=== PATIENT | male | born 1940 | race Caucasian/White ===

== ENCOUNTER 2017-03-24 10:11 | Observation (INO) | payer MEDICARE, MEDICAID ==
[~2017-03-24] VITALS: Ht 182.9 cm; Wt 121.7 kg
[~2017-03-24 10:11] MED LIST: ADVAIR 250/5028 PUFF IN; ASPIRIN 81MG TA81 MG PO; BACTROBAN2% TP; BUSPAR 10MG TAB10 MG PO; DOXAZOSIN2 MG PO; GABAPENTIN100 M1 PO; KEFLEX500 M1 PO; LASIX40 MG PO; LISINOPRIL40 MG PO; LOPRESSOR 25MG.25 MG PO; LORTAB 7.5/3251 TAB PO; LOVASTATIN40 MG PO; METFORMIN1000 MG PO; METOPROLOL25 MG PO; MIRALAX17 GM/PACK PO; OMNICEF 300 MG300 MG PO; PREDNISONE 20MG20 MG PO; PRILOSEC OTC20 MG PO; VERAPAMIL SR 2240 MG PO; XARELTO20 MG PO; ZITHROMAX Z-PA250 M2 PO
[2017-03-24 10:17] VITALS: BP 141/62
--- NOTE | 2017-03-24 11:27 | Emergency Room Report ---
History of Present Illness Time Seen by 1024 Presenting Problem in Triage Pt arrived:Wheelchair Presenting Problem:BLISTERS TO HANDS, FEET BEGAN FRIDAY, SEEN HERE FRIDAY GIVEN KEFLEX AND BACTRIM Onset of symptoms date/time:/ or onset unknown for:MEDICAL HX UNKNOWN Treatment Prior to Arrival: PROCESS INSPECTOR Provided by: Sepsis Risk Assessment: Temp: 97.4 B/P: 134/70 MAP: 88 Pulse: 55 Resp: 20 Recent fever? N Clinical Suspician of Infection? N Mental Status: 1 - Regular (Normal Baseline) Sepsis Risk:Low Sepsis Risk Have you (or family members/close friends) recently traveled outside the [place]? N If Yes, where/when: Have you had exposure to infectious disease within the past month? N TB? Other? Specify: 76 years old white male with diabetes and history of DVT, and currently on xalerto. He developed a large blisters on the face dorsum of the hands and the base of the feet. He has no general symptoms. He was seen in emergency room underwent normal labs was given antibiotics and discharged with follow-up with a primary care physician. The reports that the blisters are now oozing clear yellow serous fluid but he is unable to walk on his feet. Source patient, RN notes reviewed, family, old records Exam Limitations no limitations ALLERGIES Coded Allergies: Penicillins (Mild, 03/22/17) Home Medications Active Scripts Cephalexin (Keflex 500MG) 500 MG PO QID #40 CAP Prov: 03/22/17 MUPIROCIN 2% (Bactroban Oint) 1 GM TP BID #1 TUBE Prov: 03/22/17 Reported Medications HYDROCODONE/ACETAMINOPHEN (Lortab 7.5-325 MG Tablet) 1 TAB PO Q6 PRN Metformin HCl (Metformin) 500 MG PO BID OMEPRAZOLE MAGNESIUM (Prilosec OTC) 20 MG PO DAILY VERAPAMIL HCL (Verapamil ER) 240 MG PO DAILY Furosemide (Lasix) 40 MG PO DAILY Doxazosin Mesylate 2 MG PO DAILY Lisinopril (Lisinopril 40MG) 40 MG PO DAILY Buspirone Hcl (Buspar 10MG) 15 MG PO DAILY Rivaroxaban (Xarelto) 20 MG PO DAILY Lovastatin 40 MG PO DAILY FLUTICASONE/SALMETEROL (Advair 250-50 Diskus) 1 PUFF IN BID ASPIRIN (Aspirin) 81 MG PO DAILY Gabapentin (Gabapentin 100MG) 100 MG PO BID Metoprolol Tartrate (Lopressor) 25 MG FT BID Metoprolol Tartrate (Metoprolol) 12.5 MG PO DAILY Polyethylene Glycol 3350 (Miralax) 17 GM PO DAILY History Medical History General CAD? No Angina: No [place]: No Hypertension? Yes Hyperlipidemia? Yes CHF? Yes DVT? No PE? No COPD? Yes Asthma? Yes Anemia? No GERD? No Gastric ulcers? No GI Bleed? No Hernia? No Thyroid Problems? No Hypothyroidism? No CVA? Yes Seizures? No Diabetes? Yes Insulin Dependent: No Insulin Pump: No Home FSBS? Yes Renal Insuffiency? No End Stage Renal Disease? No UTI? No Stones? No BPH? No GB Disease: No Nephritic Syndrome? No Asplenia? No Hepatitis? No Sickle Cell Disease? No Arthritis? No Migraines? No Cataracts? Yes Glaucoma? No MRSA? No HIV? No TB? No Anxiety? No Depression? No Cancer? No More? No Immunization Hx DT/Tetanus 1-4 YRS Flu 2015-5252 Flu Season Pneumonia Received In Past Surgical Hx Previous Surgery?Y PACEMAKER INSERTION BACK SURGERY X3 COLON POLYPS CLOSED RED LT ANKLE Family History Family Hx Diabetes Yes CAD Yes Hypertension Yes Hyperlipidemia Yes Cancer Yes TB No Social History Smoking Hx Smoker: Never Smoker Tobacco: No Alcohol Alcohol: No Review of Systems All Other Systems Reviewed and Negative Constitutional no symptoms reported Eyes no symptoms reported ENT no symptoms reported. Respiratory no symptoms reported Cardiovascular no symptoms reported Gastrointestinal no symptoms reported Genitourinary no symptoms reported. Musculoskeletal no symptoms reported Skin see HPI (blisters) Psychiatric/Neurological no symptoms reported Physical Exam Vital Signs Vital Signs Date Time Temp Pulse Resp B/P Pulse O2 O2 Flow FiO2 Ox Delivery Rate 03/24 1528 98.0 62 20 134/89 98 / 1317 60 20 134/73 96 / 1207 97.4 55 20 134/70 96 09/04 1108 97.4 55 20 134/70 96 / 1017 97.4 60 20 141/62 96 - WBC >12,000 or <4,000 or 10% bands? 2 or more SIRS Criteria Met? B/P:134/70 MAP:88 Creatinine >2.0? UA output<0.5ml/kg/hr for 2 hrs? Platelet count >100,000? Lactate >2.0mmol/1? INR >1.2 or PTT > than 60 sec? Evidence of Organ Dysfunction? Provider documented clinical suspician of infection? N Sepsis Criteria Count: 1 Sepsis Risk: Low Sepsis Risk General Appearance normal appearance, WD/WN Eye Exam - bilateral eye normal exam, bilateral eye PERRL, bilateral eye EOMI Ear, Nose, Throat hearing grossly normal, normal ENT inspection Neck normal inspection, non-tender, supple, full range of motion Respiratory Status Yes: trachea midline, chest symmetrical, non tender chest. No: respiratory distress. Lung Sounds bilateral: normal breath sounds, lungs clear. Cardiovascular normal exam, regular rate/rhythm, no peripheral edema, no gallop, no JVD, no murmur, no rub, normal peripheral pulses Gastrointestinal normal bowel sounds, normal exam, non tender, soft, no organomegaly Extremities non-tender, normal inspection, multiple blisters filled with serous fluid at the bases all the feet, rash-like lesions on the dorsum of the hand, scab on the LEFT angle of the mouth, within 2-3 cm in diameter. There is one lesion on the dorsum of the LEFT big toe that seems to be slightly hemorrhagic. 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 There is venous stasis changes involving both legs. , EDEMA OVER THE MIDDLE TOES OF THE left FOOT, WITH PETECHIAL DISCOLORATION TO THE MIDFOOT. eDEMA 1+ IN THE DORSUM OF THE FOOT Medical Decision Making LABS/Meds/Orders Pt receiving controlled substance in ED? No Results/Orders Laboratory Tests 03/24/17 1206: Lactic Acid 0.4 03/24/17 1206: Sodium 142, Potassium 4.0, Chloride 103, Carbon Dioxide 31, BUN 27 H, Creatinine 1.7 H, Estimated Creat Clear 64, Estimated GFR (MDRD) 39, Glucose 111 H, Calcium 8.9, Total Bilirubin 0.4, AST 14 L, ALT 23, Alkaline Phosphatase 63, Total Protein 6.5, Albumin 3.4, Globulin 3.1, Albumin/Globulin Ratio 1.1, PT 14.7 H, INR 1.36 H, APTT 42.1 H, WBC 5.9, RBC 3.57 L, Hgb 10.2 L, Hct 32.0 L, MCV 89.7, RDW 13.8, Plt Count 179, MPV 7.3 L, Gran % 70.8, Gran # 4.2, Lymphocytes % 21.5, Monocytes % 6.0, Eosinophils % 1.1, Basophils % 0.5, Lymphocytes # 1.3, Monocytes # 0.4, Eosinophils # 0.1, Basophils # 0.0, PUBS MCHC 31.8, MCH 28.5 Orders Procedure Date/time Status PARTIAL THROMBOPLASTIN TIME 03/24 1128 Complete PROTHROMBIN TIME 03/24 1128 Complete CULTURE, BLOOD 03/24 1127 Active LACTIC ACID 03/24 1127 Complete CBC WITH AUTO DIFF 03/24 1127 Complete CHEM 12 PROFILE 03/24 1127 Complete Departure Departure Time of Disposition 1557 Disposition Still a Patient Clinical Impression Primary Impression: Cellulitis Secondary Impressions: Diabetic neuropathy, DVT (deep venous thrombosis), Medication side effect, Peripheral vascular disease Condition STABLE Referrals Jl Hoskins MD (Family) Additional Instructions THE LABS WERE STABLE BUT THE WAS ADMAANT THAT THE FOOT AND REDNESS WERE WORSE THAN 2 DAYS AGO. I SPOKE WITH DR ARCINIEGA WHOACCEPTED TO ADMIT FOR DR HOSKINS, CELLULITIS WITH FAILED OUTPATIETN THERAPY. CONTINUE ANTICOAGULATION AND US OF THE LOWER EXTREMITY IN AM Discharge Counseling Counseled pt/family regarding diagnosis, test results, medications/RX, follow up needs ED Critical Care Critical Care No If Critical Care minutes are documented, the time involved in the performance of seperately reportable procedures was not counted toward critical care time documented. I directly delivered medical care to this critically ill and/or injured patient. Timely evaluation and treatment was necessary to address the significant organ system(s) dysfunction present in this patient. at 1601
[2017-03-24 12:16] LABS: HEMOGLOBIN 10.2 g/dL (14.1-18.0); LYMPH # 1.3 K/mm3 (0.7-4.5); LYMPH % 21.5 % (10-50)
[2017-03-24 17:55] VITALS: BP 147/74
[2017-03-24 20:00] VITALS: BP 167/72; BP 168/104
[2017-03-24 21:00] VITALS: BP 167/72
[2017-03-25 04:00] VITALS: BP 179/80
--- NOTE | 2017-03-25 07:24 | PHARMACY CLINIC NOTE ---
Patient Demographics Patient Demographics Admission date: 03/24/17 Date: 03/25/17 Time: 07 Allergies Coded Allergies: Penicillins (Mild, 03/22/17) HEIGHT- FT: 6 IN: 0.00 K.706 VTE General Information Labs: Laboratory Tests 03/24 1206 Coagulation PT (9.4 - 11.8 SECONDS) 14.7 H INR (0.9 - 1.1) 1.36 H APTT (23.6 - 34.0 SECONDS) 42.1 H Hematology Hgb (14.1 - 18.0 g/dL) 10.2 L Hct (42.0 - 52.0 %) 32.0 L Plt Count (142 - 424 K/mm3) 179 Disclaimer The following section includes nursing documentation that has been pulled in for pharmacy review. Patient's VTE score: 4 Patient's VTE Risk: LOW RISK Clinical trial participant? No VTE prophylaxis [id number] VTE prophylaxis ordered? Yes Type of prophylaxis/treatment: MINI at 0723
[2017-03-25 07:26] VITALS: BP 178/90
--- NOTE | 2017-03-25 08:02 | HISTORY AND PHYSICAL REPORT ---
Demographics: Admit date: 03/24/17 Chief complaint: Rash on hands and feet PRIMARY DIAGNOSIS: CELLULITIS Allergies: Coded Allergies: Penicillins (Mild, 03/22/17) History of present illness: History of present illness: 76-year-old white male, chronically ill for morbid obesity, atrial fibrillation, chronic arthritis and diabetes presented to the emergency department 2 days before admission with rash consisting of red spots with some blistering on his shins, hands and feet. He was prescribed Keflex and Bactrim and discharged home. Came back to the emergency department on March 24, with worsening blisters and inability to walk on his feet because of his pain in the feet from this rash. His was unable to care for him at home so he was admitted to hospital , ER physician diagnosed with "cellulitis with failed outpatient therapy" and admitted him to hospital with IV antibiotics and no other medications. This morning the patient reports that he's been only mildly ill. He's had no high fevers, he reports temperature maximum around 99. He denies breathing problems, mental status change, reports that the rash does not specifically hurt , reports no joint pains, dysuria, conjunctival or intraoral symptoms reports no GI symptoms of diarrhea. No one else at home has been ill. Past medical history: Family HX Diabetes Yes CAD Yes Hypertension Yes Hyperlipidemia Yes Cancer Yes TB No Immunization HX DT/Tetanus 1-4 YRS Flu [id number] Flu Season Pneumonia Received In Past TB Test in last year No General CAD? No Angina: No [place]: No Hypertension? Yes Hyperlipidemia? Yes CHF? Yes DVT? No PE? No COPD? Yes Asthma? Yes Anemia? No GERD? No Gastric ulcers? No GI Bleed? No Hernia? No Thyroid Problems? No Hypothyroidism? No CVA? Yes Seizures? No Diabetes? Yes Insulin Dependent: No Insulin Pump: No Home FSBS? Yes Renal Insuffiency? No UTI? No Stones? No BPH? No GB Disease: No Nephritic Syndrome? No Asplenia? No Hepatitis? No Sickle Cell Disease? No Arthritis? No Migraines? No Cataracts? Yes Glaucoma? No MRSA? No HIV? No TB? No Anxiety? No Depression? No Cancer? No More? No Past Surgical HX Previous Surgery?Y PACEMAKER INSERTION BACK SURGERY X3 COLON POLYPS CLOSED RED LT ANKLE Current home meds: Active Scripts Cephalexin (Keflex 500MG) 500 MG PO QID #40 CAP Prov: 03/22/17 MUPIROCIN 2% (Bactroban Oint) 1 GM TP BID #1 TUBE Prov: 03/22/17 Reported Medications METFORMIN HCL (Metformin) 1,000 MG PO BID HYDROCODONE/ACETAMINOPHEN (Lortab 7.5-325 MG Tablet) 1 TAB PO Q6 PRN OMEPRAZOLE MAGNESIUM (Prilosec OTC) 20 MG PO DAILY VERAPAMIL HCL (Verapamil ER) 240 MG PO DAILY Furosemide (Lasix) 40 MG PO DAILY Doxazosin Mesylate 2 MG PO DAILY Lisinopril (Lisinopril 40MG) 40 MG PO DAILY Buspirone Hcl (Buspar 10MG) 15 MG PO DAILY Rivaroxaban (Xarelto) 20 MG PO DAILY Lovastatin 40 MG PO DAILY FLUTICASONE/SALMETEROL (Advair 250-50 Diskus) 1 PUFF IN BID ASPIRIN (Aspirin) 81 MG PO DAILY Gabapentin (Gabapentin 100MG) 100 MG PO BID Metoprolol Tartrate (Lopressor) 25 MG FT BID Polyethylene Glycol 3350 (Miralax) 17 GM PO DAILY Social Hx: Smoking HX Tobacco No Are you/the child exposed to second-hand smoke: No Alcohol Alcohol: No Hx of Drug Use Drug Use? No Patien't marital status is Patient's support system is fair Review of systems: Constitutional malaise, weakness. No: fever. Respiratory No: no symptoms reported. Cardiovascular No no symptoms reported Gastrointestinal/Abdominal No no symptoms reported Genitourinary No: no symptoms reported. Musculoskeletal No: no symptoms reported. Skin see HPI. Neurological No: see HPI. Exam: Lab data for last 24 hours: Laboratory Tests 03/24/17 1206: Lactic Acid 0.4 03/24/17 1206: Sodium 142, Potassium 4.0, Chloride 103, Carbon Dioxide 31, BUN 27 H, Creatinine 1.7 H, Estimated Creat Clear 64, Estimated GFR (MDRD) 39, Glucose 111 H, Calcium 8.9, Total Bilirubin 0.4, AST 14 L, ALT 23, Alkaline Phosphatase 63, Total Protein 6.5, Albumin 3.4, Globulin 3.1, Albumin/Globulin Ratio 1.1, PT 14.7 H, INR 1.36 H, APTT 42.1 H, WBC 5.9, RBC 3.57 L, Hgb 10.2 L, Hct 32.0 L, MCV 89.7, RDW 13.8, Plt Count 179, MPV 7.3 L, Gran % 70.8, Gran # 4.2, Lymphocytes % 21.5, Monocytes % 6.0, Eosinophils % 1.1, Basophils % 0.5, Lymphocytes # 1.3, Monocytes # 0.4, Eosinophils # 0.1, Basophils # 0.0, PUBS MCHC 31.8, MCH 28.5 Microbiology 03/24 1206 BLOOD: Anaerobic Blood Culture - RECD 03/24 1206 BLOOD: Aerobic Blood Culture - RECD 03/24 120 BLOOD: Anaerobic Blood Culture - RECD 03/24 120 BLOOD: Aerobic Blood Culture - RECD Admission vital signs: 1ST Vital Signs Result Date Time Pulse Ox 96 03/24 1017 B/P 141/62 03/24 1017 Temp 97.4 03/24 1017 Pulse 60 03/24 1017 Resp 20 03/24 1017 O2 Delivery ROOM AIR 03/24 1755 Additional information: Patient is pleasant, alert, oriented x3. No conjunctival lesions. No intraoral lesions. He has a couple of spots around the left side of his face that almost look like impetigo with ruptured bulla with some healing/dry exudate. His most impressive feature is the rash on hands and feet, with a pull more macular flat red rash with discrete lesions scattered over all of his digits going onto the back of his hand. He has similar spots on the feet, but on the left foot they have developed and the bladder that are somewhat painful. There is no evidence of red streaking. His shins have circumferential redness with some scaling from excoriation but his feet are always swollen and reddened and this looks fairly chronic to me. No new murmurs. Abdomen soft, pulse rate irregular as previously noted. Breathing very easily and is able to flex his neck without problems. Plan: Problem List 1. Rash 2. Acute febrile illness Plan: Patient's rash is viral in etiology, and although there certainly can be very medically serious etiologies for this rash the patient does not appear systemically ill and actually seems to be improving. Viral serologies to check for coxsackievirus, check urinalysis, RPR and thyroid studies. I will not start steroids at this point as patient is improving spontaneously. Although a drug reaction could cause this patient has had no new medications for quite a while and we will observe closely. at 0802
[2017-03-25] MEDS ORDERED: RANITIDINE 150150 MG PO (10:48)
[2017-03-25] MEDS ORDERED: PANTOPRAZOLE SO20 MG PO (10:49)
[2017-03-25] MEDS ORDERED: CALCIUM 600MG+D1 TAB PO (10:52)
[2017-03-25 11:11] LABS: FREE THYROXIN INDEX 4.5 ug/dl (5.93-13.13)
[2017-03-25 14:55] LABS: CORONAVIRUS 229E NOT DETECTED (NOT DETECTE); CORONAVIRUS HKU 1 NOT DETECTED (NOT DETECTE); CORONAVIRUS NL63 NOT DETECTED (NOT DETECTE); CORONAVIRUS OC43 NOT DETECTED (NOT DETECTE)
[2017-03-25 14:59] LABS: URINE BILIRUBIN - DIPSTICK NEGATIVE (NEG); URINE BLOOD NEGATIVE (NEG)
[2017-03-25 15:27] LABS: URINE SQUAMOUS CELLS OCC #/hpf (OCC)
[2017-03-25 16:12] LABS: RHINOVIRUS/ENTEROVIRUS DETECTED (NOT DETECTE)
[2017-03-25 16:30] VITALS: BP 146/76
[2017-03-25 19:30] VITALS: BP 119/67
[2017-03-25 19:58] VITALS: BP 119/67
--- NOTE | 2017-03-25 22:21 | RADIOLOGY REPORT PS360 ---
PROCEDURE: 2-D M-mode and color Doppler study INDICATIONS FOR THE TEST: Chest pain COPD Heart Murmur Tobacco Smoking Palpitations Fatigue Syncope EdemaX HypertensionXDiabetes MellitusX Rheumatic Fever SOBXDOE ObesityXHyperlipidemia Family History HD Additional History PACEMAKER PATIENT INFORMATION HEIGHT: 72 WEIGHT:268 GENDER: Male B/P:141/62 2-D/M-MODE INTERPRETATION: 2-D MEASUREMENTS OBSERVED VALUES IN CMS Right Ventricular Dimension (RVDd) 2.7 Interventricular Septum (Thickness)(IVsd) 1.4 Left Ventricular Internal Dimensions(LVIDd) 5.5 Left Ventricular Posterior Wall (Thickness)(LVPWd) 1.2 Aortic Root 3.6 Aortic Cusp Separation 2.5 Left Atrial Dimensions (LAD) 4.2 2D 1. Left atrium is mildly enlarged, left ventricle is normal size, there is mild concentric left ventricular hypertrophy, visually estimated ejection fraction of 55% with no obvious regional wall motion abnormality. 2. The right atrium and right ventricle are mildly enlarged, contractility of the right ventricle is normal. There is pacemaker lead seen in the right atrium and right ventricle. 3. The aortic valve is minimally thickened and fibrosed. 4. The mitral and tricuspid valve are grossly normal. 5. The pulmonic valve is poorly visualized. 6. No significant pericardial effusion noted. DOPPLER INTERROGATION: Doppler interrogation of the aortic mitral and tricuspid valvular presence of mild mitral and tricuspid regurgitation, tricuspid and jet velocity is insufficient for calculation of the right ventricular systolic pressure, grade 1 diastolic dysfunction seen without tissue Doppler evidence of raised left atrial pressure. CONCLUSION: 1. Mildly enlarged left atrium, normal left ventricular size, mild concentric left ventricular hypertrophy, visually estimated ejection fraction 55% with no obvious regional wall motion abnormality, grade 1 diastolic dysfunction seen without tissue Doppler evidence of raised left atrial pressure. 2. Mildly enlarged right ventricle with normal contractility. 3. Mild mitral and tricuspid regurgitation. 4. No significant pericardial effusion noted.
[2017-03-26 04:30] VITALS: BP 153/76
[2017-03-26 06:56] LABS: HEMOGLOBIN 10.2 g/dL (14.1-18.0); LYMPH # 1.3 K/mm3 (0.7-4.5); LYMPH % 32.3 % (10-50)
--- NOTE | 2017-03-26 08:04 | ACUTE CARE PROGRESS NOTE (QUA) ---
Progress Notes Subjective Date 03/26/17 Time 0801 Note Overall patient feels better. Continues to have some lesions on his left lower lip, his hand lesions have improved 3 foot lesions continue to show a little bit of blistering but no drainage, no red streaking. Continue have the characteristic palmar and solar distribution consistent with viral infection. Cardiopulmonary exam unchanged, abdomen soft Objective Findings Last VS-Temp:98.5 B/P:153/76 Pulse:61 Resp:18 SaO2:95 ROOM AIR Last weight lbs:268 oz:5 K.706 Method:Bed Scales Assessment/Plan Problem List 1. Rash 2. Acute febrile illness 3. Hand, foot and mouth disease Patient condition Improving Plan: continue current care, positive enterovirus urology makes sense given his rash issues. Other surrounding such as testing for secondary syphilis is ending. I think patient can safely be discharged with home health. I would like podiatry to look at his toenails before discharge. Close followup with home health for daily wound care. This inpt stay is expected to cross 2 MNs from start of care Yes at 0803
--- NOTE | 2017-03-26 08:08 | DISCHARGE SUMMARY STANDARD ---
Demographics Admit date: 03/24/17 Discharge date: 03/26/17 History of present illness History of present illness 76-year-old white male, chronically ill for morbid obesity, atrial fibrillation, chronic arthritis and diabetes presented to the emergency department 2 days before admission with rash consisting of red spots with some blistering on his shins, hands and feet. He was prescribed Keflex and Bactrim and discharged home. Came back to the emergency department on March 24, with worsening blisters and inability to walk on his feet because of his pain in the feet from this rash. His was unable to care for him at home so he was admitted to hospital , ER physician diagnosed with "cellulitis with failed outpatient therapy" and admitted him to hospital with IV antibiotics and no other medications. This morning the patient reports that he's been only mildly ill. He's had no high fevers, he reports temperature maximum around 99. He denies breathing problems, mental status change, reports that the rash does not specifically hurt , reports no joint pains, dysuria, conjunctival or intraoral symptoms reports no GI symptoms of diarrhea. No one else at home has been ill. Hospital Course Hospital Course: Patient was admitted, pancultured, which were negative for bacterial illnesses. Patient's rash had the characteristic appearance of palms and sole rash consistent with viral issues versus spirochete disease. RPR testing is negative. PCR testing showed positive enterovirus urology and patient has been around numerous grandkids who have had a variety of rashes. Patient improved very nicely with just supportive care and fluids. Wounds on the feet were dressed and have stopped oozing. This morning patient able to walk without much pain. Patient will be discharged home. Given his immobility because of the painful feet and lack of driving at this point and his difficulty walking he will be recommended for home health therapy for nursing evaluation and daily wound dressings for the wound on his feet. I examined patient today and determined that he was suitable for home health. He'll be discharged home today. He will finish up the antibiotics prescribed for the initial cellulitis that probably as a secondary issue to the foot rash. I will see him in my office in followup Discharge diagnoses Problem List 1. Rash 2. Acute febrile illness 3. Hand, foot and mouth disease Medications Medications: Discharge meds are as noted. Follow up Follow up in office in: 8 DAYS with: Jl Brown MD at 0807
[2017-03-26 08:30] VITALS: BP 140/75
[2017-03-26 09:00] VITALS: BP 140/75
--- NOTE | 2017-03-26 09:11 | CONSULT NOTE-PODIATRY ---
Podiatry consult Date of admission: 03/24/17 Chief complaint: DM, Elongated fungal toenails, foot wounds History: History of Present Illness: Mr. Sheikh is a 76-year-old morbidly obese DM white male, with atrial fibrillation, chronic arthritis who presented to the ED 2 days before admission with rash consisting of red spots with some blistering on his shins, hands and feet. He was prescribed Keflex and Bactrim and discharged home. 03/24/17 Patient returned to ED with worsening blisters and inability to walk on his feet because of his pain in the feet from this rash. He was admitted to hospital, ER physician diagnosed with "cellulitis with failed outpatient therapy " and admitted him to hospital with IV antibiotics and no other medications. Per Dr. Brown: This morning the patient reports that he's been only mildly ill. He's had no high fevers, he reports temperature maximum around 99. He denies breathing problems, mental status change, reports that the rash does not specifically hurt, reports no joint pains, dysuria, conjunctival or intraoral symptoms reports no GI symptoms of diarrhea. No one else at home has been ill. Patient denies seeing a entry level truck driver outpatient. He currently does not have routine DM foot care. He wears diabetic socks but denies having diabetic shoes. Past Medical History: Medical History: CAD? No Angina: No WI: No Hypertension? Yes Hyperlipidemia? Yes CHF? Yes DVT? No PE? No COPD? Yes Asthma? Yes Anemia? No GERD? No Gastric ulcers? No GI Bleed? No Hernia? No Thyroid Problems? No Hypothyroidism? No CVA? Yes Seizures? No Diabetes? Yes Insulin Dependent: No Insulin Pump: No Home FSBS? Yes Renal Insuffiency? No UTI? No Stones? No BPH? No GB Disease: No Nephritic Syndrome? No Asplenia? No Hepatitis? No Sickle Cell Disease? No Arthritis? No Migraines? No Cataracts? Yes Glaucoma? No MRSA? No HIV? No TB? No Anxiety? No Depression? No Cancer? No More? No Surgical history: Previous Surgery?Y PACEMAKER INSERTION BACK SURGERY X3 COLON POLYPS CLOSED RED LT ANKLE Medications: Active Scripts Cephalexin (Keflex 500MG) 500 MG PO QID #40 CAP Prov: 03/22/17 MUPIROCIN 2% (Bactroban Oint) 1 GM TP BID #1 TUBE Prov: 03/22/17 Reported Medications Lisinopril (Lisinopril 40MG) 40 MG PO DAILY Gabapentin (Gabapentin 100MG) 100 MG PO TID Metoprolol Tartrate (Lopressor) 25 MG PO BID CALCIUM CARBONATE/VITAMIN D3 (Calcium 600 + Vit D 200 Tablet) 1 TAB PO BID METFORMIN HCL (Metformin) 1,000 MG PO BID HYDROCODONE/ACETAMINOPHEN (Lortab 7.5-325 MG Tablet) 1 TAB PO Q6 PRN VERAPAMIL HCL (Verapamil ER) 240 MG PO DAILY Furosemide (Lasix) 40 MG PO DAILY Doxazosin Mesylate 2 MG PO DAILY Buspirone Hcl (Buspar 10MG) 15 MG PO DAILY Rivaroxaban (Xarelto) 20 MG PO DAILY Lovastatin 40 MG PO DAILY FLUTICASONE/SALMETEROL (Advair 250-50 Diskus) 1 PUFF IN BID ASPIRIN (Aspirin) 81 MG PO DAILY Polyethylene Glycol 3350 (Miralax) 17 GM PO DAILY RANITIDINE HCL (Ranitidine HCl) 150 MG PO BID #180 TAB Pantoprazole Sodium (Pantoprazole 20MG) 20 MG PO BID #180 TAB Allergies: Coded Allergies: Penicillins (Mild, 03/22/17) Family History: Family history: Negative for: unknown. Social History: Smoking Hx Tobacco: No Smoker: Never Smoker Type: N/A Packs/day: N/A Are you exposed to second hand No Alcohol: Alcohol: No Hx of Drug Use: Drug Use? No Patien't marital status is: Review of Systems: Patient unresponsive? No Constitutional No: chills, fatigue. Respiratory No: shortness of air. GI No: abdominal pain, nausea. Musculoskeletal Positive for: extremity swelling (b/l LE). No: arterial, extremity pain. Physical Exam: Vital signs: Vital Signs Result Date Time Resp 16 03/26 0853 Pulse Ox 95 03/26 430 B/P 153/76 03/26 430 O2 Delivery ROOM AIR 03/26 430 Temp 98.5 03/26 430 Pulse 61 03/26 430 Lab data: Labs: Laboratory Tests 03/26/17 0637: Sodium 141, Potassium 3.8, Chloride 103, Carbon Dioxide 32, BUN 22 H, Creatinine 1.2, Estimated Creat Clear 90, Estimated GFR (MDRD) 59, Glucose 106, Calcium 8.6, Total Bilirubin 0.3, AST 12 L, ALT 16, Alkaline Phosphatase 55, Total Protein 6.1 L, Albumin 3.0 L, Globulin 3.1, Albumin/Globulin Ratio 1.0 L, WBC 4.0 L, RBC 3.46 L, Hgb 10.2 L, Hct 30.9 L, MCV 89.4, RDW 13.5, Plt Count 183, MPV 7.4, Gran % 57.9, Gran # 2.3, Lymphocytes % 32.3, Monocytes % 6.0 , Eosinophils % 3.1, Basophils % 0.7, Lymphocytes # 1.3, Monocytes # 0.2, Eosinophils # 0.1, Basophils # 0.0, PUBS MCHC 33.0, MCH 29.5 03/26/17 0627: POC Glucose 114 H 03/25/17 1941: POC Glucose 156 H 03/25/17 1657: POC Glucose 112 H 03/25/17 1453: Chlamy pneum (TEM-PCR) NOT DETECTED, Adenovirus (PCR) NOT DETECTED, B. pertussis DNA (PCR) NOT DETECTED, Coronavirus OC43 (PCR) NOT DETECTED, Coronavirus HKU1 ( PCR) NOT DETECTED, Coronavirus 229E (PCR) NOT DETECTED, Coronavirus NL63 (PCR) NOT DETECTED, Human Metapneumovir PCR NOT DETECTED, Influenza A (H1) PCR NOT DETECTED, Influ A (H1N1/09) PCR NOT DETECTED, Influenza A (H3) PCR NOT DETECTED, Influenza Type A (PCR) NOT DETECTED, Influenza Type B (PCR) NOT DETECTED, M. pneumoniae (PCR) NOT DETECTED, Parainfluenza 1 (PCR) NOT DETECTED, Parainfluenza 2 (PCR) NOT DETECTED, Parainfluenza 3 (PCR) NOT DETECTED, Parainfluenza 4 (PCR) NOT DETECTED, RSV (PCR) NOT DETECTED, Entero/Rhino (PCR) DETECTED H 03/25/17 1155: POC Glucose 109 Diagnosis(es): 1. Rash 2. Acute febrile illness 3. Hand, foot and mouth disease Additional information: DARIN: Vascular: DP/PT pedal pulses palpable, minimal pedal hair growth, CFT wnl, skin temp warm, minimal varicose veins Dermatologic: toenails thickened and yellow discoloration with slight elongation , toenails are not digging into skin or presenting an ulcer threat, severe inter -digital macerations, mulitple b/l foot, leg and hand rash lesions with open blisters/popped bulla. The skin to the feet is red. Neurologic: light touch protective sensation diminished, no focal deficits, normal muscle mass Musculoskeletal: muscle strength wnl b/l, moderate arch height b/l, no pain noted with active or passive ROM to ankle, STJ, or midtarsal joints Plan: Hand, foot and mouth disease/Coxsackie virus: 1. Due to the multiple open blisters and severe interdigital macerations, will hold off on trimming toenails. The toenails are very thick and look to be fungal. As there is no immediate threat for the toenails being long enough to cause an ulceration, hold off on the trim until virus has resolved. Concern would be fungal contamination into the open wounds 2. Follow-up with me outpatient in 2-3 weeks once virus has resolved 3. Patient will need routine diabetic foot care and evaluation 4. Likely patient will also need diabetic shoes Thank you for the consult at 0910
[2017-03-26 10:10] VITALS: BP 140/75
[2017-03-26 16:36] LABS: Antinuclear Antibodies, IFA Negative (.)
== END 2017-03-26 10:11 | disposition home health service (06) ==
LOC: ER 10:11 → 2ND 16:12 → ER 16:12 → 2ND 17:42
PROVIDERS: Emergency Medicine; Internal Medicine Adolescent Medicine
DX: B08.4 Enteroviral vesicular stomatitis with exanthem (principal); B35.1 Tinea unguium; E11.9 Type 2 diabetes mellitus without complications; I48.91 Unspecified atrial fibrillation; Z79.01 Long term (current) use of anticoagulants; J44.9 Chronic obstructive pulmonary disease, unspecified; I10 Essential (primary) hypertension; B34.1 Enterovirus infection, unspecified; Z95.0 Presence of cardiac pacemaker; R21 Rash and other nonspecific skin eruption; Z79.899 Other long term (current) drug therapy
CPT/HCPCS: G0378